=== PATIENT | female | born 1995 | race Caucasian/White ===

== ENCOUNTER 2017-01-20 06:16 | Emergency (ER) | payer MEDICAID, OTHER ==
[~2017-01-20] VITALS: Ht 167.6 cm; Wt 99.1 kg
[2017-01-20 06:18] VITALS: Ht 167.6 cm; Wt 99.1 kg
[2017-01-20] MEDS ORDERED: BENZ100C70 PO (06:44)
[2017-01-20] MEDS ORDERED: D-ME473S18 PO (06:44)
[2017-01-20] MEDS ORDERED: FLUT9.9S NASAL (06:44)
--- NOTE | 2017-01-20 08:32 | ERD ---
DATE OF SERVICE: HISTORY OF PRESENT ILLNESS: The patient is a 21-year-old female coming in complaining of a cough fo r the last 4 days. The patient states that it has become productive. She has had no fevers. She h as a runny nose, a sore throat, has a raspy voice, and some right-sided ear pain. She has been taki ng Thera-Flu, Sudafed, an Nyquil with mild alleviation of symptoms. No sick contacts at home. Does not feel short of breath or have hemoptysis. PAST MEDICAL HISTORY: Denies any other medical problems. ALLERGIES: DENIES ALLERGIES TO MEDICATIONS. PAST SURGICAL HISTORY: Denies. HOSPITALIZATIONS: Denies. REVIEW OF SYSTEMS: A 12-point review of systems was done. Refer to HPI for positives, all other sy stems negative. PHYSICAL EXAMINATION: VITAL SIGNS: Temperature is 98.3, pulse is 90, blood pressure is 135/70, respiratory rate 20, O2 sa turation 97% on room air. Pain intensity is 6/10. GENERAL: The patient is well-appearing, well-nourished, no acute distress. HEART: Regular rate and rhythm. No murmurs, clicks, rubs or gallops. No S3 or S4. CHEST: Clear to auscultation bilaterally. There are no rales, wheezes or rhonchi. HEENT: Atraumatic. Conjunctivae are pink. Pupils equal, round, and reactive to light. There is no s cleral icterus. Tympanic membranes clear bilaterally. Oropharynx clear. No nystagmus or photophobia . ABDOMEN: Soft, nontender and nondistended. Good bowel sounds. No rebound or guarding. No gross мария tonitis. No gross organomegaly or masses. No Blackwood sign or McBurney point tenderness. SKIN: There is no apparent rash or petechia. The skin is warm and dry. BACK: No midline or flank tenderness. NECK: C-spine is soft and supple. There is no meningismus. There is no cervical lymphadenopathy. No JVD. No bruits. No goiter. DIAGNOSES: 1. Cough. 2. Upper respiratory infection. MEDICAL DECISION MAKING: I have a low suspicion for pneumonia, low suspicion for bacterial HEENT in fection, low suspicion for meningitis or sepsis. Low suspicion for respiratory distress or hypoxia. The patient's vital signs are stable. The patient's exam is not concerning. I did not feel that there was indication for antibiotics at I feel the patient's symptoms are likely associated with vir al infection. DISCHARGE: The patient is discharged stable. The patient is given a prescription for Flonase, Radha doris, and promethazine DM and told to follow up with primary care within 1 to 2 days for reevaluatio n. The patient was told if symptoms progress or worsen to return to the ER. All other questions an swered at time of discharge. Discharge summary given at the time of departure. The patient underst ood and complied with plan. Dictated By: ALICIA BAINS for JANEE JENNINGS/ALESSANDRA Conf#: [id number] DID#: [id number]
== END 2017-01-20 06:49 | disposition home or self-care (01) ==
LOC: FTE 06:16
DX: R05 Cough (principal); J06.9 Acute upper respiratory infection, unspecified
CPT/HCPCS: 99284